=== PATIENT | male | born 1945 | race Caucasian/White ===

== ENCOUNTER → 2016-05-18 | Outpatient (CLI) | payer MEDICARE, OTHER ==
[~2016-05-18] MED LIST: BENADRYL50 MG PO; VIAGRA100 MG PO; VITAMIN B1225 MCG PO; VITAMIN D22000 IU PO
== END ==
LOC: LAB 12:07
DX: E05.00 Thyrotoxicosis with diffuse goiter without thyrotoxic crisis or storm (principal); M85.80 Other specified disorders of bone density and structure, unspecified site; E78.2 Mixed hyperlipidemia; E53.8 Deficiency of other specified B group vitamins

== ENCOUNTER → 2017-06-03 | Outpatient (CLI) | payer MEDICARE, OTHER ==
[2014-07-06 09:42] VITALS: BP 145/87
[2017-06-03 11:46] LABS: EOS # 0.1 (0.04-0.40); EOS % 2.4 % (0.0-4.0); HEMATOCRIT 50.5 % (42.0-52.0); HEMOGLOBIN 16.4 g/dL (13.5-18.0); LYMPH# 1.2 (1.50-4.00); MEAN CELL VOLUME 104 fl (78-100); MEAN CORPUSCULAR HEMOGLOBIN 34 pg (27-31); MEAN CORPUSCULAR HGB CONC 33 g/dL (33-37); MEAN PLATELET VOLUME 10.7 fl (7.4-10.4); MONO # 0.4 (0.20-0.80); NEU # 2.9 (1.40-6.50); PLATELET COUNT 153 K/mm3 (130-400); RED BLOOD COUNT 4.87 M/mm3 (4.20-5.60); RED CELL DISTRIBUTION WIDTH 12.4 % (11.5-14.5); WHITE BLOOD COUNT 4.7 K/mm3 (4.8-10.8)
[2017-06-03 12:10] LABS: ALBUMIN 4.4 g/dL (3.5-5.0); BUN/CREATININE RATIO 25.9 (6.0-26.0); CALCIUM 9.4 mg/dL (8.4-10.2); POTASSIUM 4.7 mmol/L (3.6-5.0); TOTAL BILIRUBIN 0.8 mg/dL (0.2-1.3); TOTAL PROTEIN 7.8 g/dL (6.3-8.2)
[2017-06-03 13:03] LABS: ERYTHROCYTE SEDIMENTATION RATE 1 mm/hr (0-20)
== END ==
LOC: LAB 11:20
PROVIDERS: Internal Medicine
DX: E05.00 Thyrotoxicosis with diffuse goiter without thyrotoxic crisis or storm (principal); Z12.11 Encounter for screening for malignant neoplasm of colon; M85.80 Other specified disorders of bone density and structure, unspecified site; E53.8 Deficiency of other specified B group vitamins; N20.0 Calculus of kidney; E78.2 Mixed hyperlipidemia; Z88.5 Allergy status to narcotic agent

== ENCOUNTER → 2018-06-10 | Outpatient (CLI) | payer MEDICARE, OTHER ==
[2014-07-06 09:42] VITALS: BP 145/87
[2018-06-10 10:29] LABS: EOS # 0.3 (0.04-0.40); HEMATOCRIT 45.8 % (42.0-52.0); HEMOGLOBIN 14.7 g/dL (13.5-18.0); LYMPH# 1.5 (1.50-4.00); MEAN CELL VOLUME 100 fl (78-100); MEAN CORPUSCULAR HEMOGLOBIN 32 pg (27-31); MEAN CORPUSCULAR HGB CONC 32 g/dL (33-37); MEAN PLATELET VOLUME 10.4 fl (7.4-10.4); MONO # 0.5 (0.20-0.80); NEU # 2.9 (1.40-6.50); PLATELET COUNT 181 K/mm3 (130-400); RED BLOOD COUNT 4.56 M/mm3 (4.20-5.60); RED CELL DISTRIBUTION WIDTH 13.6 % (11.5-14.5); WHITE BLOOD COUNT 5.2 K/mm3 (4.8-10.8)
[2018-06-10 10:37] LABS: ALBUMIN 4.3 g/dL (3.5-5.0); CALCIUM 9.4 mg/dL (8.4-10.2); POTASSIUM 4.5 mmol/L (3.6-5.0); TOTAL BILIRUBIN 0.7 mg/dL (0.2-1.3); TOTAL PROTEIN 7.3 g/dL (6.3-8.2)
[2018-06-10 10:38] LABS: EOS % 5.2 % (0.0-4.0)
[2018-06-10 11:40] LABS: ERYTHROCYTE SEDIMENTATION RATE 1 mm/hr (0-20)
[2018-06-11 02:05] LABS: TESTOSTERONE 524 ng/dL (221-716)
== END ==
LOC: LAB 10:02
PROVIDERS: Internal Medicine
DX: Z12.5 Encounter for screening for malignant neoplasm of prostate (principal); Z12.11 Encounter for screening for malignant neoplasm of colon; G20 Parkinson's disease; E05.00 Thyrotoxicosis with diffuse goiter without thyrotoxic crisis or storm; E78.5 Hyperlipidemia, unspecified; E53.8 Deficiency of other specified B group vitamins; M85.80 Other specified disorders of bone density and structure, unspecified site

== ENCOUNTER → 2018-06-24 | Outpatient (CLI) | payer MEDICARE, OTHER ==
[2014-07-06 09:42] VITALS: BP 145/87
== END ==
LOC: LAB 11:01
DX: Z12.11 Encounter for screening for malignant neoplasm of colon (principal); G20 Parkinson's disease; M85.80 Other specified disorders of bone density and structure, unspecified site; E53.8 Deficiency of other specified B group vitamins

== ENCOUNTER → 2019-01-30 | Outpatient (CLI) | payer MEDICARE, OTHER ==
[~2019-01-30] VITALS: Ht 172.7 cm; Wt 61.4 kg
[~2019-01-30] MED LIST changes: +CARBIDOPA AND L1 OD1 PO
[2019-01-30 13:49] LABS: HEMOGLOBIN 14.5 g/dL (13.5-18.0); MEAN PLATELET VOLUME 10.5 fl (7.4-10.4); RED BLOOD COUNT 4.27 M/mm3 (4.20-5.60); RED CELL DISTRIBUTION WIDTH 13.3 % (11.5-14.5); WHITE BLOOD COUNT 4.7 K/mm3 (4.8-10.8)
[2019-01-30 13:55] LABS: POTASSIUM 4.2 mmol/L (3.5-5.1)
[2019-01-30 13:56] LABS: CALCIUM 9.3 mg/dL (8.3-10.5)
[2019-01-30 13:57] LABS: TOTAL PROTEIN 6.9 g/dL (6.2-8.1)
[2019-01-30 13:59] LABS: TOTAL BILIRUBIN 0.7 mg/dL (0.2-1.2)
[2019-01-30 14:05] VITALS: BP 139/81
== END ==
LOC: LAB 13:33
PROVIDERS: Surgery
DX: Z01.818 Encounter for other preprocedural examination (principal)

== ENCOUNTER → 2019-06-11 | Outpatient (CLI) | payer MEDICARE, OTHER ==
[2019-01-30 14:05] VITALS: BP 139/81
[2019-06-11 11:42] LABS: EOS # 0.3 (0.04-0.40); EOS % 5.5 % (0.0-4.0); HEMATOCRIT 45.6 % (42.0-52.0); HEMOGLOBIN 15.4 g/dL (13.5-18.0); LYMPH# 1.6 (1.50-4.00); MEAN CELL VOLUME 101 fl (78-100); MEAN CORPUSCULAR HEMOGLOBIN 34 pg (27-31); MEAN CORPUSCULAR HGB CONC 34 g/dL (33-37); MEAN PLATELET VOLUME 10.7 fl (7.4-10.4); MONO # 0.6 (0.20-0.80); NEU # 3.4 (1.40-6.50); PLATELET COUNT 200 K/mm3 (130-400); RED CELL DISTRIBUTION WIDTH 12.6 % (11.5-14.5)
[2019-06-11 11:45] LABS: ALBUMIN 4.6 g/dL (3.4-4.8); POTASSIUM 4.8 mmol/L (3.5-5.1)
[2019-06-11 11:46] LABS: CALCIUM 10.1 mg/dL (8.3-10.5)
[2019-06-11 11:48] LABS: TOTAL PROTEIN 7.7 g/dL (6.2-8.1)
[2019-06-11 11:49] LABS: TOTAL BILIRUBIN 0.7 mg/dL (0.2-1.2)
[2019-06-11 12:41] LABS: ERYTHROCYTE SEDIMENTATION RATE 7 mm/hr (0-20)
== END ==
LOC: LAB 11:27
PROVIDERS: Internal Medicine
DX: Z12.11 Encounter for screening for malignant neoplasm of colon (principal); Z12.5 Encounter for screening for malignant neoplasm of prostate; E53.8 Deficiency of other specified B group vitamins; E78.5 Hyperlipidemia, unspecified; E05.00 Thyrotoxicosis with diffuse goiter without thyrotoxic crisis or storm; M85.80 Other specified disorders of bone density and structure, unspecified site; G20 Parkinson's disease

== ENCOUNTER → 2020-06-16 | Outpatient (CLI) | payer MEDICARE ==
[2019-01-30 14:05] VITALS: BP 139/81
[2020-06-16 10:27] LABS: EOS # 0.3 (0.04-0.40); HEMATOCRIT 43.7 % (42.0-52.0); HEMOGLOBIN 14.7 g/dL (13.5-18.0); LYMPH# 1.2 (1.50-4.00); MEAN CELL VOLUME 101 fl (78-100); MEAN CORPUSCULAR HEMOGLOBIN 34 pg (27-31); MEAN CORPUSCULAR HGB CONC 34 g/dL (33-37); MEAN PLATELET VOLUME 11.3 fl (7.4-10.4); MONO # 0.5 (0.20-0.80); NEU # 2.7 (1.40-6.50); PLATELET COUNT 173 K/mm3 (130-400); RED BLOOD COUNT 4.35 M/mm3 (4.20-5.60); RED CELL DISTRIBUTION WIDTH 12.5 % (11.5-14.5); WHITE BLOOD COUNT 4.8 K/mm3 (4.8-10.8)
[2020-06-16 10:28] LABS: POTASSIUM 4.7 mmol/L (3.5-5.1)
[2020-06-16 10:29] LABS: ALBUMIN 4.2 g/dL (3.4-4.8); EOS % 6.1 % (0.0-4.0)
[2020-06-16 10:30] LABS: CALCIUM 9.2 mg/dL (8.3-10.5)
[2020-06-16 10:31] LABS: TOTAL PROTEIN 7.2 g/dL (6.2-8.1)
[2020-06-16 10:52] LABS: URINE APPEARANCE CLEAR; URINE COLOR YELLOW
[2020-06-16 10:53] LABS: URINE BILIRUBIN NEGATIVE (NEGATIVE); URINE BLOOD TRACE (NEGATIVE); URINE GLUCOSE NEGATIVE (NEGATIVE); URINE KETONE NEGATIVE (NEGATIVE); URINE LEUKOCYTE ESTERASE NEGATIVE (NEGATIVE); URINE NITRATE NEGATIVE (NEGATIVE); URINE PROTEIN(semi-quant) TRACE mg/dL (NEGATIVE); URINE UROBILINOGEN NORMAL (NORMAL)
[2020-06-16 11:29] LABS: ERYTHROCYTE SEDIMENTATION RATE 5 mm/hr (0-20)
== END ==
LOC: LAB 09:58
PROVIDERS: Internal Medicine
DX: G20 Parkinson's disease (principal); K90.9 Intestinal malabsorption, unspecified; E78.2 Mixed hyperlipidemia; E05.00 Thyrotoxicosis with diffuse goiter without thyrotoxic crisis or storm

== ENCOUNTER → 2020-08-23 | Outpatient (CLI) | payer MEDICARE ==
[2019-01-30 14:05] VITALS: BP 139/81
== END ==
LOC: RAD 12:44 → MAMMO 13:00
DX: Z13.820 Encounter for screening for osteoporosis (principal); M80.851A Other osteoporosis with current pathological fracture, right femur, initial encounter for fracture; M85.88 Other specified disorders of bone density and structure, other site

== ENCOUNTER → 2021-07-10 | Outpatient (CLI) | payer MEDICARE ==
[2021-07-10 16:04] LABS: BASO # 0.02 K/mm3 (0.02-0.10); EOS # 0.14 K/mm3 (0.04-0.40); EOS % 2.3 % (0.0-4.0); HEMOGLOBIN 15.1 g/dL (13.5-18.0); MEAN CELL VOLUME 104 fl (78-100); MEAN CORPUSCULAR HEMOGLOBIN 34 pg (27-31); MEAN CORPUSCULAR HGB CONC 33 g/dL (33-37); MEAN PLATELET VOLUME 10.5 fl (7.4-10.4); MONO # 0.56 K/mm3 (0.20-0.80); NEU # 4.19 K/mm3 (1.40-6.50); PLATELET COUNT 200 K/mm3 (130-400); RED BLOOD COUNT 4.43 M/mm3 (4.20-5.60); RED CELL DISTRIBUTION WIDTH 12.5 % (11.5-14.5); WHITE BLOOD COUNT 6.1 K/mm3 (4.8-10.8)
[2021-07-10 16:36] LABS: POTASSIUM 4.9 mmol/L (3.5-5.1); SODIUM 143 mmol/L (136-145)
[2021-07-10 16:37] LABS: ALBUMIN 4.5 g/dL (3.4-4.8)
[2021-07-10 16:38] LABS: CALCIUM 10.5 mg/dL (8.3-10.5)
[2021-07-10 16:39] LABS: GLUCOSE 123 mg/dL (75-110); TOTAL PROTEIN 7.6 g/dL (6.2-8.1)
[2021-07-10 16:40] LABS: CARBON DIOXIDE 27 mmol/L (23-31)
[2021-07-10 16:41] LABS: TOTAL BILIRUBIN 0.9 mg/dL (0.2-1.2)
[2021-07-10 16:44] LABS: AST-SGOT 14 U/L (5-34)
[2021-07-10 16:49] LABS: ALT/SGPT < 6 U/L (0-55)
[2021-07-10 16:53] LABS: URINE APPEARANCE CLEAR; URINE BILIRUBIN NN (NEGATIVE); URINE BLOOD TRACE (NEGATIVE); URINE COLOR YELLOW; URINE KETONE NEGATIVE (NEGATIVE); URINE LEUKOCYTE ESTERASE TRACE (NEGATIVE); URINE MUCUS PRESENT (NOT PRESENT); URINE NITRATE NEGATIVE (NEGATIVE); URINE PROTEIN(semi-quant) TRACE (NEGATIVE); URINE UROBILINOGEN NORMAL (NORMAL)
== END ==
LOC: LAB 15:45
PROVIDERS: Internal Medicine
DX: G47.33 Obstructive sleep apnea (adult) (pediatric) (principal); G20 Parkinson's disease; E05.00 Thyrotoxicosis with diffuse goiter without thyrotoxic crisis or storm; N20.0 Calculus of kidney; E53.8 Deficiency of other specified B group vitamins; N40.0 Benign prostatic hyperplasia without lower urinary tract symptoms; K90.9 Intestinal malabsorption, unspecified; E78.2 Mixed hyperlipidemia; R97.8 Other abnormal tumor markers

== ENCOUNTER → 2022-07-16 | Outpatient (CLI) | payer MEDICARE ==
[2022-07-16 10:48] LABS: BASO # 0.02 K/mm3 (0.02-0.10); EOS # 0.26 K/mm3 (0.04-0.40); EOS % 5.2 % (0.0-4.0); HEMATOCRIT 42.1 % (42.0-52.0); HEMOGLOBIN 13.6 g/dL (13.5-18.0); LYMPH# 1.37 K/mm3 (1.50-4.00); MEAN CELL VOLUME 100 fl (78-100); MEAN CORPUSCULAR HEMOGLOBIN 32 pg (27-31); MEAN CORPUSCULAR HGB CONC 32 g/dL (33-37); MEAN PLATELET VOLUME 10.6 fl (7.4-10.4); MONO # 0.39 K/mm3 (0.20-0.80); NEU # 2.98 K/mm3 (1.40-6.50); PLATELET COUNT 168 K/mm3 (130-400); RED BLOOD COUNT 4.23 M/mm3 (4.20-5.60)
[2022-07-16 10:56] LABS: ALBUMIN 4.1 g/dL (3.4-4.8); POTASSIUM 4.6 mmol/L (3.5-5.1)
[2022-07-16 10:57] LABS: CALCIUM 9.6 mg/dL (8.3-10.5)
[2022-07-16 10:58] LABS: TOTAL PROTEIN 7.1 g/dL (6.2-8.1)
[2022-07-16 11:00] LABS: TOTAL BILIRUBIN 0.5 mg/dL (0.2-1.2)
[2022-07-16 11:05] LABS: URINE APPEARANCE CLEAR; URINE BILIRUBIN NEGATIVE (NEGATIVE); URINE BLOOD NEGATIVE (NEGATIVE); URINE COLOR YELLOW; URINE GLUCOSE NEGATIVE (NEGATIVE); URINE KETONE NEGATIVE (NEGATIVE); URINE LEUKOCYTE ESTERASE NEGATIVE (NEGATIVE); URINE NITRATE NEGATIVE (NEGATIVE); URINE PROTEIN(semi-quant) TRACE (NEGATIVE); URINE UROBILINOGEN NORMAL (NORMAL); URINE WBC 0-1 /hpf (0-3)
[2022-07-16 11:50] LABS: ERYTHROCYTE SEDIMENTATION RATE 16 mm/hr (0-20)
== END ==
LOC: LAB 10:28
PROVIDERS: Internal Medicine
DX: G20 Parkinson's disease (principal); G47.33 Obstructive sleep apnea (adult) (pediatric); K90.9 Intestinal malabsorption, unspecified; E78.2 Mixed hyperlipidemia; N40.0 Benign prostatic hyperplasia without lower urinary tract symptoms; E05.00 Thyrotoxicosis with diffuse goiter without thyrotoxic crisis or storm; N20.0 Calculus of kidney; E53.8 Deficiency of other specified B group vitamins; M85.80 Other specified disorders of bone density and structure, unspecified site; R97.8 Other abnormal tumor markers; Z19.1 Hormone sensitive malignancy status

== ENCOUNTER → 2022-08-28 | Outpatient (CLI) | payer MEDICARE | LOC: RAD 14:01 → MAMMO 14:01 | DX: M81.0 Age-related osteoporosis without current pathological fracture (principal); M85.88 Other specified disorders of bone density and structure, other site ==

== ENCOUNTER → 2023-10-21 | Outpatient (CLI) | payer MEDICARE ==
[~2023-10-21] MED LIST changes: +Zoledronic Acid 100 ML IV ONE
== END ==
LOC: AMSURD 09:56
DX: M81.0 Age-related osteoporosis without current pathological fracture (principal)
CPT/HCPCS: J3489

== ENCOUNTER → 2024-01-20 | Outpatient (CLI) | payer MEDICARE ==
[~2024-01-20] MED LIST changes: -Zoledronic Acid 100 ML IV ONE
[2024-01-20 17:22] LABS: BASO # 0.03 K/mm3 (0.02-0.10); EOS # 0.56 K/mm3 (0.04-0.40); EOS % 7.6 % (0.0-4.0); HEMATOCRIT 42.2 % (42.0-52.0); HEMOGLOBIN 13.4 g/dL (13.5-18.0); LYMPH# 2.09 K/mm3 (1.50-4.00); MEAN CELL VOLUME 97 fl (78-100); MEAN CORPUSCULAR HEMOGLOBIN 31 pg (27-31); MEAN CORPUSCULAR HGB CONC 32 g/dL (33-37); MEAN PLATELET VOLUME 10.6 fl (7.4-10.4); MONO # 0.56 K/mm3 (0.20-0.80); NEU # 4.15 K/mm3 (1.40-6.50); PLATELET COUNT 227 K/mm3 (130-400); RED BLOOD COUNT 4.36 M/mm3 (4.20-5.60); WHITE BLOOD COUNT 7.4 K/mm3 (4.8-10.8)
[2024-01-20 17:26] LABS: ALBUMIN 4.2 g/dL (3.4-4.8); SODIUM 140 mmol/L (136-145)
[2024-01-20 17:27] LABS: CALCIUM 10.2 mg/dL (8.3-10.5)
[2024-01-20 17:28] LABS: GLUCOSE 74 mg/dL (75-110); TOTAL PROTEIN 6.9 g/dL (6.2-8.1)
[2024-01-20 17:29] LABS: CARBON DIOXIDE 25 mmol/L (23-31)
[2024-01-20 17:30] LABS: TOTAL BILIRUBIN 0.4 mg/dL (0.2-1.2)
[2024-01-20 17:34] LABS: AST-SGOT 18 U/L (5-34); MAGNESIUM 1.84 mg/dL (1.60-2.60)
[2024-01-20 17:38] LABS: ALT/SGPT < 6 U/L (0-55)
[2024-01-20 23:09] LABS: FOLATE (FOLIC ACID) 14.2 ng/mL (2.0-20.0)
== END ==
LOC: LAB 17:03
PROVIDERS: Internal Medicine
DX: G20.A1 Parkinson's disease without dyskinesia, without mention of fluctuations (principal); K90.9 Intestinal malabsorption, unspecified; R20.2 Paresthesia of skin

== ENCOUNTER → 2024-07-28 | Outpatient (CLI) | payer MEDICARE ==
[2024-07-28 16:20] LABS: BASO # 0.01 K/mm3 (0.02-0.10); EOS # 0.39 K/mm3 (0.04-0.40); EOS % 5.3 % (0.0-4.0); HEMATOCRIT 42.6 % (42.0-52.0); HEMOGLOBIN 13.3 g/dL (13.5-18.0); LYMPH# 1.76 K/mm3 (1.50-4.00); MEAN CELL VOLUME 98 fl (78-100); MEAN CORPUSCULAR HEMOGLOBIN 31 pg (27-31); MEAN CORPUSCULAR HGB CONC 31 g/dL (33-37); MEAN PLATELET VOLUME 10.2 fl (7.4-10.4); MONO # 0.54 K/mm3 (0.20-0.80); PLATELET COUNT 200 K/mm3 (130-400); RED BLOOD COUNT 4.36 M/mm3 (4.20-5.60); WHITE BLOOD COUNT 7.4 K/mm3 (4.8-10.8)
[2024-07-28 16:30] LABS: ALBUMIN 4.2 g/dL (3.4-4.8); SODIUM 140 mmol/L (136-145)
[2024-07-28 16:31] LABS: CALCIUM 9.7 mg/dL (8.3-10.5)
[2024-07-28 16:32] LABS: GLUCOSE 91 mg/dL (75-110); TOTAL PROTEIN 7.3 g/dL (6.2-8.1)
[2024-07-28 16:33] LABS: CARBON DIOXIDE 25 mmol/L (23-31)
[2024-07-28 16:34] LABS: TOTAL BILIRUBIN 0.5 mg/dL (0.2-1.2)
[2024-07-28 16:37] LABS: AST-SGOT 14 U/L (5-34)
[2024-07-28 16:39] LABS: MAGNESIUM 1.62 mg/dL (1.60-2.60)
[2024-07-28 16:45] LABS: ALT/SGPT < 6 U/L (0-55)
== END ==
LOC: LAB 15:41
PROVIDERS: Internal Medicine
DX: G20.A1 Parkinson's disease without dyskinesia, without mention of fluctuations (principal); E05.00 Thyrotoxicosis with diffuse goiter without thyrotoxic crisis or storm; K90.9 Intestinal malabsorption, unspecified; E78.2 Mixed hyperlipidemia; R97.8 Other abnormal tumor markers